=== PATIENT | female | born 1960 | race Caucasian/White ===

== ENCOUNTER 2021-10-28 13:28 | Emergency (ER) | payer BC, OTHER ==
[~2021-10-28] VITALS: Ht 157.5 cm; Wt 89.1 kg
[2021-10-28] MEDS: fentaNYL 100 MCG/2 ML INJECTION (J3010) IV PRN ×2 (14:10→14:55)
--- NOTE | 2021-10-28 14:11 | REP ---
INDICATION: left ankle pain COMPARISON: None. TECHNIQUE: AP, lateral, bilateral oblique views. FINDINGS: Moderate swelling is suggested along with age-related changes at the medial and lateral malleoli. Ankle mortise appears intact. No obvious acute fracture or dislocation. IMPRESSION: Mild swelling. No obvious acute fracture or dislocation. <Electronically signed by Alejo Kessler > 10/28/21 0997
[2021-10-28] MEDS ORDERED: ALBU8.5H PO (14:41)
[2021-10-28] MEDS ORDERED: ADV250INH INH (14:41)
[2021-10-28] MEDS ORDERED: CELE50CA PO (14:41)
[2021-10-28] MEDS ORDERED: LISI10TA22 PO (14:41)
[2021-10-28] MEDS ORDERED: SYNT112T2 PO (14:41)
[2021-10-28] MEDS ORDERED: OMEP-218 PO (14:41)
[2021-10-28] MEDS ORDERED: GABA800T4 PO (14:41)
[2021-10-28 15:30] VITALS: BP 126/71
== END 2021-10-28 15:32 | disposition home or self-care (01) ==
LOC: M ED 13:28 → EDBD 13:28 → M ED 15:32
DX: S93.402A Sprain of unspecified ligament of left ankle, initial encounter (principal); X50.9XXA Other and unspecified overexertion or strenuous movements or postures, initial encounter; Y92.018 Other place in single-family (private) house as the place of occurrence of the external cause; I10 Essential (primary) hypertension; Z79.899 Other long term (current) drug therapy; Z79.890 Hormone replacement therapy
CPT/HCPCS: 73610; 96374; 96376; 99284; J3010